=== PATIENT | female | born 1985 | race Caucasian/White ===

== ENCOUNTER 2016-12-20 10:23 | Inpatient (IN) | payer MEDICAID ==
[2016-12-20] MEDS ORDERED: LORazepam 1 MG TAB PO PRN (10:32)
[2016-12-20] MEDS ORDERED: ACETAMINOPHEN TAB 325 MG TAB PO PRN (10:32)
[2016-12-20] MEDS ORDERED: MAG HYDROX/AL HYDROX/SIMETH 30 ML CUP PO PRN (10:32)
[2016-12-20] MEDS ORDERED: MAGNESIUM HYDROXIDE 2,400 MG/10 ML CUP PO PRN (10:32)
[2016-12-20] MEDS ORDERED: ZIPRASIDONE 20 MG VIAL IM PRN (10:32)
[2016-12-20] MEDS ORDERED: LORazepam 2 MG/ML INJ IM PRN (10:33)
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
[2016-12-21] MEDS: NICOTINE 14MG/24HR PATCH TRANSDERM SCH (08:28)
[2016-12-21] MEDS ORDERED: LORazepam 1 MG TAB PO ONE (18:00)
--- NOTE | 2016-12-21 20:22 | P.HP ---
Psychiatric H&P - . H&P Date: 12/21/16 History & Physical: Allergies Allergy/AdvReac Type Severity Reaction Status Date / Time No Known Allergies Allergy Verified 12/20/16 14:33 Vital Signs Temp 98.2 F 12/21/16 06:01 Pulse 112 H 12/21/16 06:01 Resp 18 12/21/16 06:01 BP 141/79 12/21/16 06:01 Pulse Ox Intake & Output 12/20/16 12/21/16 12/21/16 18:59 06:59 18:59 Weight 76.5 kg HPI: Patient is a 31-year-old female who presents to the unit after being apped by her mother for concerns for her care of her son. Patient is floridly manic, euphoric and very pleasant during the interview. Patient states that she in no way trying to harm her son and describes in great detail recent events in which she only wanted to show her baby what to do in certain instances with her hands and never touched him in any way that would hurt him. She states that because her latter day conviction is very good sometimes she will feel awkward around her because she is always phrasing though it is even around her baby and make some people uncomfortable and she is aware, but she states that she does do She will continue to do so patient was asked to give some more examples of which was relatively benign and not bizarre. Patient is agreeable to trial of medicine, she states that she knows that she has a mental illness now and she accepts the need for treatment. She states that she only wants to get better for her children herself and she expresses and will gladly agree to treatment plan Patient simply what her counseling is not currently taking any medications. PSYCHIATRIC HISTORY: aunt has bipolar disorder PMH: Past Medical History Past Medical History: No Reported History, Asthma History of Any Multi-Drug Resistant Organisms: None Reported Additional Past Surgical History / Comment(s): tumor removed off back Past Anesthesia/Blood Transfusion Reactions: No Reported Reaction Past Psychological History: Anxiety, Depression Smoking Status: Current every day smoker FAMILY HISTORY: aunt has bipolar copd SOCIAL HISTORY: environmental: pt, son plan to move [facility], currently living with ex : no anglican: Christanity access to firearms: no sexual orientation: str safety at home: yes STRENGTHS/WEAKNESSES: resolve, family support / coping skills INTELLECTUAL FUNCTIONING: average MENTAL STATUS EXAM: Appearance: alert, well groomed, appears stated age, steady gait Behavior: psychomotor agitation +++, no abnormal movements, fair eye contact Attitude: cooperative Speech: normal rate, rhythm, fluency, articulation; volume; and prosody; primary language: [place] Mood: euphoric Affect: congruent, reactive, expansive Thought processes: linear, organized Thought content: patient does not appear to be responding to internal stimuli; patient denies auditory and visual hallucinations, no delusions appreciated Insight: poor to fair Judgment: fair Assessment and Plan (1) Bipolar 1 disorder, manic, moderate Status: Acute Plan: Start Latuda 40-mg PO QAM WC -start Klonopin 0.5-mg PO TID PRN -SW will arrange family meeting -discharge plan will take careful chafing to involve patient and her sons wellbeing Time with Patient: Greater than 30
[2016-12-21] MEDS: clonazePAM 0.5 MG TAB PO SCH (21:07)
[2016-12-22] MEDS: NICOTINE 14MG/24HR PATCH TRANSDERM SCH (09:04)
[2016-12-22] MEDS: LURASIDONE 40 MG TAB PO SCH (09:04)
[2016-12-22] MEDS: clonazePAM 0.5 MG TAB PO SCH ×3 (09:04→20:32)
--- NOTE | 2016-12-22 16:52 | P.PN ---
Subjective Principal diagnosis: Bipolar 1, most recent episode manic Patient is again pleasant, calm, cooperative with interview. She reports feeling better today and only has one concern being too drowsy in the evening on her current dose of Klonopin and asks for a dose reduction. She states she slept well for the first time last night, better than she has in fa long time Patient reports tolerating Latuda well with no adverse or side effects thus far. She remains euphoric, and intensely cordial during the interview. During team meaning, however, nursing staff and social workers describe patient as being demanding, labile, more erratic ! -decrease Klonopin to 05-mg PO BID -continue Latuda 40-mg PO with breakfast -SW will schedule a family meeting -patient has upcoming meeting with her court assigned title attorney, disposition pending course Objective - Vital Signs Vital signs: Vital Signs Temp 98.2 F 12/22/16 07:15 Pulse 91 12/22/16 15:53 Resp 18 12/22/16 15:53 BP 120/69 12/22/16 15:53 Pulse Ox 97 12/21/16 18:27 Assessment and Plan (1) Bipolar 1 disorder, manic, moderate Status: Acute
[2016-12-22] MEDS: ALBUTEROL INHALER 60 PUFF/8 GM INHALER INHALATION PRN (21:30)
[2016-12-23 08:44] LABS: Appearance,Urine Clear (Clear); Bilirubin,Urine Negative (Negative); Glucose,Urine (UA) Negative (Negative); Ketones,Urine Negative (Negative); Leukocyte Esterase,Urine Small (Negative); Mucus,Urine Rare /hpf; Nitrite,Urine Negative (Negative); Particle Count 2574; Protein,Urine Negative (Negative); Squamous Epithelial Cell,Urine 5 /hpf (0-4); UA Billing (MACRO vs. MICRO) MICRO; Urobilinogen,Urine <2.0 mg/dL (<2.0); WBC,Urine 1 /hpf (0-5)
[2016-12-23] MEDS: clonazePAM 0.5 MG TAB PO SCH ×2 (09:20→20:49)
[2016-12-23] MEDS: NICOTINE 14MG/24HR PATCH TRANSDERM SCH (09:20)
[2016-12-23] MEDS: LURASIDONE 40 MG TAB PO SCH (09:20)
--- NOTE | 2016-12-23 10:11 | P.PN ---
Subjective Principal diagnosis: Bipolar 1, most recent episode manic Patient remains somewhat manic, euphoric praising people in the name of the Lord and energetic. During interview, patient's states that she thought she was this morning and requested a STAT test becuase she woke up in the middle of the night nauseous with stomach cramps and a mild headache. Patient states the feeliing was similar to ones she had when she was so she thought, "Maybe I'm oregnant now!." Patient is again overly cordial during interview. ~ -continue Klonopin to 05-mg PO BID -continue Latuda 40-mg PO with breakfast -SW will schedule a family meeting -patient has upcoming meeting with her court assigned real estate attorney, disposition pending course Objective - Vital Signs Vital signs: Vital Signs Temp 98.2 F 12/23/16 05:52 Pulse 93 12/23/16 05:52 Resp 18 12/23/16 05:52 BP 101/64 12/23/16 05:52 Pulse Ox 97 12/21/16 18:27 - Labs Labs: Abnormal Lab Results - Last 24 Hours (Table) 12/23/16 Range/Units 07:45 Ur Leukocyte Esterase Small H (Negative) Ur Squamous Epith Cells 5 H (0-4) /hpf Urine Mucus Rare H (None) /hpf Assessment and Plan (1) Bipolar 1 disorder, manic, moderate Status: Acute
[2016-12-23 11:02] LABS: Cholesterol 141 mg/dL (<200); HDL Cholesterol 34 mg/dL (40-60)
[2016-12-23] MEDS: ALBUTEROL INHALER 60 PUFF/8 GM INHALER INHALATION PRN ×2 (12:33→21:10)
[2016-12-24] MEDS: clonazePAM 0.5 MG TAB PO SCH ×2 (08:29→20:06)
[2016-12-24] MEDS: LURASIDONE 40 MG TAB PO SCH (08:30)
[2016-12-24] MEDS: NICOTINE 14MG/24HR PATCH TRANSDERM SCH (08:30)
[2016-12-24 09:37] LABS: Basophils # (A) 0.1 k/uL (0-0.2); Basophils % (A) 1 %; CH 30.7; CHCM 32.7; Eosinophils # (A) 0.4 k/uL (0-0.7); Eosinophils % (A) 5 %; HCT 47.3 % (34.0-46.0); HDW 2.16; HGB 14.9 gm/dL (11.4-16.0); Luc # (Auto) 0.14; Luc % (Auto) 2; Lymphocytes # (A) 2.9 k/uL (1.0-4.8); Lymphocytes % (A) 33 %; MCH 29.7 pg (25.0-35.0); MCHC 31.5 g/dL (31.0-37.0); MCV 94.2 fL (80.0-100.0); Monocytes # (A) 0.5 k/uL (0-1.0); Monocytes % (A) 6 %; Neutrophils # (A) 4.6 k/uL (1.3-7.7); Neutrophils % (A) 54 %; RBC 5.02 m/uL (3.80-5.40); RDW 13.9 % (11.5-15.5); WBC 8.6 k/uL (3.8-10.6); WBC (Perox) 8.13
[2016-12-24 10:09] LABS: ALT 35 U/L (9-52); AST 21 U/L (14-36); Alkaline Phosphatase 60 U/L (38-126); Anion Gap 13 mmol/L; Blood Urea Nitrogen 11 mg/dL (7-17); Carbon Dioxide 22 mmol/L (22-30); Chloride 105 mmol/L (98-107); Cholesterol 144 mg/dL (<200); Glucose 98 mg/dL (74-99); HDL Cholesterol 33 mg/dL (40-60); Non-African American GFR(MDRD) >60 (>60 ml/min/1.73 sqM); Potassium 4.4 mmol/L (3.5-5.1); Sodium 140 mmol/L (137-145); Total Bilirubin 0.5 mg/dL (0.2-1.3); Total Protein 7.9 g/dL (6.3-8.2)
[2016-12-24 12:56] LABS: Hemoglobin A1C 5.1 % (4.2-6.1)
--- NOTE | 2016-12-24 13:35 | P.PN ---
Subjective Principal diagnosis: Bipolar 1, most recent episode manic Vital Signs Temp 98.7 F 12/24/16 00:12 Pulse 110 H 12/24/16 00:12 Resp 16 12/24/16 00:12 BP 119/82 12/24/16 00:12 Pulse Ox 97 12/21/16 18:27 Interval History: Patient continues to be manic, euphoric, energetic, intrusive, grandiosity, hyperverbal. She has also began to display some Cluster B traits, splitting with staff and peers, acting like a child yet normal when observed when she is not aware someone is watching her. Patient is tolerating Latuda well with no adverse side effects. She does report today a desire to have children in the future and wants to make certain her regimen is safe if possible for . Objective - Vital Signs Vital signs: Vital Signs Temp 98.7 F 12/24/16 00:12 Pulse 110 H 12/24/16 00:12 Resp 16 12/24/16 00:12 BP 119/82 12/24/16 00:12 Pulse Ox 97 12/21/16 18:27 - Labs CBC & Chem 7: 12/24/16 09:18 12/24/16 09:18 Labs: Abnormal Lab Results - Last 24 Hours (Table) 12/24/16 12/24/16 Range/Units 09:18 09:18 Hct 47.3 H (34.0-46.0) % HDL Cholesterol 33 L (40-60) mg/dL Assessment and Plan (1) Bipolar 1 disorder, manic, moderate Status: Acute Plan: -Increase Latuda to 80-mg PO QAM WC -continue Klonopin 0.5-mg PO BID -SW will arrange family meeting -provisional discharge on 12/28/2016
[2016-12-25] MEDS: LURASIDONE 80 MG TAB PO SCH (08:29)
[2016-12-25] MEDS: NICOTINE 14MG/24HR PATCH TRANSDERM SCH (08:29)
[2016-12-25] MEDS: clonazePAM 0.5 MG TAB PO SCH ×2 (08:29→21:33)
--- NOTE | 2016-12-25 17:58 | P.PN ---
Subjective Principal diagnosis: Interval History: Patient remains manic, intrusive, requires constant redirection. Per staff, patient got approximately 4 hours of sleep last night having stayed up late to writing letters, which she presented this morning to several team members. The attending letter is essentially a list in prose things patient will do post discharge to ensure success. Patient;s goal is discharge today, which is not happening. Patient attempts multiple times to persuade including claiming she has appointments already setup. She does not. Patient was reminded again that her SW would arrange this. Patient then stated attending could speak to her new psychiatrist and therapist. Patient was reminded that speaking to a psychiatrist and therapist whom she has yet to see would be of no value and therefore unnecessary. Patient was informed of her family meeting on Wednesday and encouraged to participate in groups this weekend. Objective - Vital Signs Vital signs: Vital Signs Temp 97.6 F 12/25/16 04:14 Pulse 101 H 12/25/16 04:14 Resp 16 12/25/16 04:14 BP 113/69 12/25/16 04:14 Pulse Ox 97 12/21/16 18:27 - Labs CBC & Chem 7: 12/24/16 09:18 12/24/16 09:18 Assessment and Plan (1) Bipolar 1 disorder, manic, moderate Status: Acute Plan: -Increase Latuda to 80-mg PO QAM WC -continue Klonopin 0.5-mg PO BID -family meeting scheduled for 12/27/2016 -provisional discharge on 12/28/2016
[2016-12-25] MEDS: ALBUTEROL INHALER 60 PUFF/8 GM INHALER INHALATION PRN (19:14)
[2016-12-26] MEDS: NICOTINE 14MG/24HR PATCH TRANSDERM SCH (08:10)
[2016-12-26] MEDS: clonazePAM 0.5 MG TAB PO SCH ×2 (08:10→21:25)
[2016-12-26] MEDS: LURASIDONE 80 MG TAB PO SCH (08:10)
[2016-12-26] MEDS: ALBUTEROL INHALER 60 PUFF/8 GM INHALER INHALATION PRN ×2 (08:41→16:13)
--- NOTE | 2016-12-26 13:01 | P.PN ---
Progress Note - Text Interval history: Patient is seen in cross coverage today for Dr. Alexander. She reports that she just had taken a nap. She says that the Klonopin does make her tired but it does give her benefit. She feels like the Latuda is working well for her. She does not seem to voice any adverse psychotropic medication side effects other than some sedation with Klonopin. She says she slept about 6 hours last night. Mental status exam: She is alert and cooperative with the interview. She is seen with female nursing staff present. She describes her mood as "amazing.". She does show range of affect. She does not verbalize any thoughts of harm to self or others. She does not verbalize any hallucinations or delusions. She does not show any agitation. Plan: We'll maintain current psychotropic medication regimen. Monitor for any medication side effects and monitor her ongoing response. We'll continue to cover this patient for Dr. Alexander through the weekend.
[2016-12-27] MEDS: clonazePAM 0.5 MG TAB PO SCH ×2 (08:04→21:16)
[2016-12-27] MEDS: LURASIDONE 80 MG TAB PO SCH (08:04)
[2016-12-27] MEDS: NICOTINE 14MG/24HR PATCH TRANSDERM SCH (08:04)
[2016-12-27] MEDS: ALBUTEROL INHALER 60 PUFF/8 GM INHALER INHALATION PRN ×3 (08:50→21:27)
--- NOTE | 2016-12-27 15:12 | P.PN ---
Progress Note - Text Interval history: Patient is seen in cross coverage today in for Dr. Alexander. She reports that she was just taking a nap. She does feel like the Klonopin makes her tired but feels that it is beneficial for her. She also feels like the Latuda is helping her. She describes her mood is doing good. She does seem to describe that her mood still could be more stabilized. She is seen with female nursing staff present. Per staff she has continued to present with some manic-like symptoms. Mental status exam: She is alert and cooperative with the interview. Her speech is fluent, not really rapid or pressured today. Her mood is described as good. She denies any thoughts of harm to self or others. She does not verbalize any hallucinations. She does not make any emmie delusional statements. She does not show any agitation. Plan: We'll initiate Lamictal 25 mines at bedtime to assist with mood stabilization. We'll maintain Latuda as current as well as Klonopin. Dr. Alexander will resume care this patient starting tomorrow. Monitor for any medication side effects.
[2016-12-27] MEDS: lamoTRIgine 25 MG TAB PO SCH (21:16)
[2016-12-28] MEDS: clonazePAM 0.5 MG TAB PO SCH (08:08)
[2016-12-28] MEDS: NICOTINE 14MG/24HR PATCH TRANSDERM SCH (08:08)
[2016-12-28] MEDS: LURASIDONE 80 MG TAB PO SCH (08:08)
[2016-12-28] MEDS: ALBUTEROL INHALER 60 PUFF/8 GM INHALER INHALATION PRN ×3 (09:09→18:50)
[2016-12-28] MEDS ORDERED: METOPROLOL SUCCINATE (ER) 50 MG TAB.ER.24H PO STA (17:33)
[2016-12-28] MEDS ORDERED: traZODone HCL 50 MG TAB PO SCH ×2 (21:00→22:30)
[2016-12-28] MEDS ORDERED: clonazePAM 0.5 MG TAB PO SCH (21:00)
[2016-12-28] MEDS: lamoTRIgine 25 MG TAB PO SCH (21:06)
--- NOTE | 2016-12-28 22:32 | P.PN ---
Subjective Patient interviewed privately. Patient began interview displaying a list she made displaying her to do list upon returning home to help herself on track. She them attempted to present to various other lists. Patient attendance or rather lack thereof to group therapy over the last 3 days was reviewed with patient in detail as well as the family meeting where patient presented as hyper, impulsive, and such that her parents did not feel patient was safe to discharge home. Patient admitted to her mistakes and admits she has been careless. Patient also endorses symptom suggestive of akathisia today which could explain some of her recent behaviors Objective - Vital Signs Vital signs: Vital Signs Temp 98.5 F 12/28/16 07:07 Pulse 100 12/27/16 01:24 Resp 16 12/28/16 07:07 BP 120/65 12/28/16 07:07 Pulse Ox 97 12/21/16 18:27 Intake & Output 12/27/16 12/28/16 12/28/16 18:59 06:59 18:59 Weight 78.4 kg - Labs CBC & Chem 7: 12/24/16 09:18 12/24/16 09:18 Assessment and Plan (1) Bipolar 1 disorder, manic, moderate Status: Acute Plan: -continue Latuda to 80-mg PO QAM WC -decrease Klonopin 0.5-mg PO HS due to EDS -start Toprol XL 50--mg PO QAM
[2016-12-29] MEDS ORDERED: METOPROLOL SUCCINATE (ER) 50 MG TAB.ER.24H PO SCH (09:00)
[2016-12-29] MEDS: LURASIDONE 80 MG TAB PO SCH (09:02)
[2016-12-29] MEDS: NICOTINE 14MG/24HR PATCH TRANSDERM SCH (09:02)
[2016-12-29] MEDS: ALBUTEROL INHALER 60 PUFF/8 GM INHALER INHALATION PRN ×2 (09:09→13:46)
--- NOTE | 2016-12-29 20:06 | PN ---
PROGRESS NOTE DATE OF SERVICE: 12/29/2016 PRESENTING COMPLAINT: Area of redness in the leg. INTERVAL HISTORY: This patient is admitted to the psychiatry unit. Tolerating a diet. Noticed what looked an insect bite on the inside of the upper leg, just above the knee joint posteriorly. She does not remember if an insect bit her there. She does not remember any injury. Rather localized. PHYSICAL EXAMINATION: Temperature 98.5, pulse 86, respirations 16, blood pressure 108/71. DERMATOLOGIC: On the posterior part of the leg, just above the knee, raised area very slightly tender. It matches the area of the seams of the gabby lining. ASSESSMENT: Possible local trauma from the linng of tight jeans. PLAN: The patient was told not to wear jeans and use a hospital gown instead and use some local cream like Vaseline cream. This was discussed with the nurse. MMMAGDIELL / MARINAN: [id number] /
[2016-12-29] MEDS ORDERED: LORazepam 1 MG TAB PO SCH (21:00)
[2016-12-29] MEDS: lamoTRIgine 25 MG TAB PO SCH (21:14)
--- NOTE | 2016-12-29 21:14 | P.PN ---
Subjective Principal diagnosis: Bipolar disorder, type I, most recent episode manic Patient interviewed privately. Akathisia is improved but still significant. Patient is however participating in more groups. She continues to have difficulty sleeping at night, but otherwise she reports feeling improved. Staff report patient is doing better overall/ Objective - Vital Signs Vital signs: Vital Signs Temp 98.5 F 12/29/16 01:36 Pulse 66 12/29/16 01:36 Resp 16 12/29/16 01:36 BP 108/71 12/29/16 01:36 Pulse Ox 97 12/21/16 18:27 - Labs CBC & Chem 7: 12/24/16 09:18 12/24/16 09:18 Assessment and Plan (1) Bipolar 1 disorder, manic, moderate Status: Acute Plan: -continue Latuda to 80-mg PO QAM WC -start Ativan 2-mg PO QHS -increase Trazodone to 100-mg PO QHS -increase Toprol XL 75--mg PO QAM Time with Patient: Greater than 30
[2016-12-29] MEDS: traZODone HCL 100 MG TAB PO SCH (22:11)
[2016-12-30] MEDS: LURASIDONE 80 MG TAB PO SCH (08:50)
[2016-12-30] MEDS: NICOTINE 14MG/24HR PATCH TRANSDERM SCH (08:50)
[2016-12-30] MEDS: METOPROLOL SUCCINATE (ER) 25 MG TAB.ER.24H PO SCH (08:53)
--- NOTE | 2016-12-30 12:09 | P.PN ---
Subjective Principal diagnosis: Bipolar disorder, type I, most recent episode manic Patient interviewed privately. She reports for the first time sleeping 8- consecutive hours. She reports total resolution of akathisia with increase of Toprol XL to 75-mg PO QAM. Patient is eating well. Patient remains mildly hypomanic but overall much improved from initial presentation. She is now able to sit down and through entire group sessions without getting up and pacing. Staff report patient has been intrusive with other patient's and also note a maked decrease in manic symptoms. Patient request a full review of her medications and clarification on her primary diagnosis, which is bipolar I disorder, most recent episode moderate. Appearance: alert, well groomed, appears stated age, steady gait Behavior: no psychomotor agitation or psychomotor retardation, no abnormal movements, fair eye contact Attitude: cooperative Speech: normal rate, rhythm, fluency, articulation; volume; and prosody; primary language: Telugu Mood: mildly hypomanic Affect: congruent, reactive, bright Thought processes: linear, organized Thought content: patient does not appear to be responding to internal stimuli; patient denies auditory and visual hallucinations, no delusions appreciated Insight: fair Judgment: fair Objective - Vital Signs Vital signs: Vital Signs Temp 98.5 F 12/29/16 01:36 Pulse 104 H 12/30/16 08:55 Resp 20 12/30/16 08:55 BP 104/62 12/30/16 08:55 Pulse Ox 97 12/21/16 18:27 - Labs CBC & Chem 7: 12/24/16 09:18 12/24/16 09:18 Assessment and Plan (1) Bipolar 1 disorder, manic, moderate Status: Acute Plan: -continue Latuda to 80-mg PO QAM WC -continue Ativan 2-mg PO QHS -continue Trazodone to 100-mg PO QHS -continue Toprol XL 75--mg PO QAM -psychoeducation on bipolar I, detection and appropriate response to future mood episodes to prevent re-hospitalization, patient given handout on bipolar I disorder Time with Patient: Greater than 30
[2016-12-30] MEDS ORDERED: lamoTRIgine 25 MG TAB PO SCH ×2 (21:00→22:00)
[2016-12-30] MEDS: traZODone HCL 100 MG TAB PO SCH (21:56)
[2016-12-30] MEDS ORDERED: LORazepam 1 MG TAB PO SCH (22:00)
[2016-12-31 06:42] VITALS: BP 100/69; PULSE 85; RESP 14; TEMP 97.9
[2016-12-31] MEDS: ALBUTEROL INHALER 60 PUFF/8 GM INHALER INHALATION PRN (08:46)
[2016-12-31] MEDS: LURASIDONE 80 MG TAB PO SCH (09:02)
[2016-12-31] MEDS: NICOTINE 14MG/24HR PATCH TRANSDERM SCH (09:02)
[2016-12-31] MEDS: METOPROLOL SUCCINATE (ER) 25 MG TAB.ER.24H PO SCH ×2 (09:02→09:06)
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
== END 2016-12-31 11:13 | disposition home or self-care (01) | DRG 753 ==
LOC: UNDOADMIN 11:34 → 3MHU 11:34 → UNDOADMIN 16:44 → 3MHU 16:49
PROVIDERS: ADMIT Psychiatry & Neurology Psychiatry; ATTEND Psychiatry & Neurology Psychiatry
DX: F31.9 Bipolar disorder, unspecified (principal); E86.0 Dehydration; F17.210 Nicotine dependence, cigarettes, uncomplicated; F41.9 Anxiety disorder, unspecified; G47.00 Insomnia, unspecified; J45.20 Mild intermittent asthma, uncomplicated; Z81.8 Family history of other mental and behavioral disorders; Z79.899 Other long term (current) drug therapy
CPT/HCPCS: 80053; 80061; 81001; 81025; 83036; 84443; 85025; 93005; 94640

== ENCOUNTER → 2017-05-24 | Outpatient (CLI) | payer OTHER ==
[2017-05-24 15:29] LABS: T4, Free (Free Thyroxine) 0.82 ng/dL (0.78-2.19)
== END | disposition home or self-care (01) ==
LOC: LABWHC1 14:18
PROVIDERS: ATTEND Psychiatry & Neurology Psychiatry
DX: Z51.81 Encounter for therapeutic drug level monitoring (principal); Z79.899 Other long term (current) drug therapy
CPT/HCPCS: 36415; 84439; 84443

== ENCOUNTER → 2017-11-30 | Outpatient (CLI) | payer OTHER ==
[2017-11-30 15:30] LABS: T4, Free (Free Thyroxine) 0.96 ng/dL (0.78-2.19)
== END | disposition home or self-care (01) ==
LOC: LABWHC1 14:44
PROVIDERS: ATTEND Psychiatry & Neurology Psychiatry
DX: Z51.81 Encounter for therapeutic drug level monitoring (principal); Z79.899 Other long term (current) drug therapy
CPT/HCPCS: 36415; 83036; 84439; 84443

== ENCOUNTER → 2019-05-30 | Outpatient (CLI) | payer OTHER ==
[2019-05-30 16:55] LABS: African American GFR (CKD) 113.9 (60.0-200.0); Albumin 4.4 g/dL (3.80-4.90); Albumin/Globulin Ratio 1.76 (1.60-3.17); Anion Gap 8.2 mmol/L (4.00-12.00); BUN/Creat Ratio 17.5 Ratio (12.00-20.00); Calcium 9.5 mg/dL (8.7-10.3); Carbon Dioxide 21.8 mmol/L (21.6-31.8); Globulin 2.5 g/dL (1.6-3.3); Non-African American GFR(CKD) 98.2 (60.0-200.0); Potassium 4.2 mmol/L (3.5-5.5); Total Bilirubin 0.6 mg/dL (0.2-1.2); Total Protein 6.9 g/dL (6.2-8.2)
[2019-05-30 17:02] LABS: T4, Free (Free Thyroxine) 0.9 ng/dL (0.80-1.80)
[2019-05-30 18:46] LABS: Hemoglobin A1C 5.4 % (4.0-6.0)
== END | disposition home or self-care (01) ==
LOC: LABWHC1 11:27
PROVIDERS: ATTEND Psychiatry & Neurology Psychiatry
DX: Z51.81 Encounter for therapeutic drug level monitoring (principal); Z79.899 Other long term (current) drug therapy
CPT/HCPCS: 36415; 80053; 83036; 84439; 84443

== ENCOUNTER 2019-08-21 17:53 | Emergency (ER) | payer OTHER ==
[2019-08-21 18:30] VITALS: PULSE 94; RESP 18; TEMP 98.1
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
[2019-08-21 20:22] VITALS: BP 135/91
== END 2019-08-21 20:22 | disposition home or self-care (01) ==
LOC: EC 17:53
DX: M54.5 Low back pain (principal); F17.200 Nicotine dependence, unspecified, uncomplicated; Z88.8 Allergy status to other drugs, medicaments and biological substances
CPT/HCPCS: 99283

== ENCOUNTER → 2019-08-30 | Outpatient (CLI) | payer OTHER ==
--- NOTE | 2019-08-30 11:54 | XR ---
EXAM TYPE: LUMBAR SPINE X RAY SERIES COMPARISON: NONE HISTORY: Pain TECHNIQUE: 4 views are submitted. FINDINGS: Alignment is anatomic. The pedicles are intact. The transverse processes are intact. There is no s pondylolysis or spondylolisthesis. There is degenerative disc disease L4-5 and L5-S1. Facet arthropa thy at these levels. Sclerosis involving L4 likely discogenic. IMPRESSION: 1. Degenerative disc disease L4-5 and L5-S1 with facet arthropathy and posterior spondylolysis and sp urring. Recommend follow-up MRI. Foraminal encroachment suspected at both levels.
== END | disposition home or self-care (01) ==
LOC: RADXRMAIN 11:25
PROVIDERS: ATTEND Nurse Practitioner Family
DX: M51.36 Other intervertebral disc degeneration, lumbar region (principal); M47.816 Spondylosis without myelopathy or radiculopathy, lumbar region; M47.817 Spondylosis without myelopathy or radiculopathy, lumbosacral region; M46.96 Unspecified inflammatory spondylopathy, lumbar region; M46.97 Unspecified inflammatory spondylopathy, lumbosacral region
CPT/HCPCS: 72100

== ENCOUNTER → 2019-12-14 | Outpatient (CLI) | payer OTHER ==
[2019-12-14 16:49] LABS: Basophils # (A) 0.1 k/uL (0-0.2); Basophils % (A) 0 %; Eosinophils # (A) 0.2 k/uL (0-0.7); Eosinophils % (A) 2 %; HCT 45.7 % (34.0-46.0); HGB 14.5 gm/dL (11.4-16.0); Lymphocytes # (A) 3.2 k/uL (1.0-4.8); Lymphocytes % (A) 28 %; MCH 29.7 pg (25.0-35.0); MCHC 31.7 g/dL (31.0-37.0); MCV 93.6 fL (80.0-100.0); Mean Platelet Volume 6.6; Monocytes # (A) 0.5 k/uL (0-1.0); Monocytes % (A) 5 %; Neutrophils # (A) 7.1 k/uL (1.3-7.7); Neutrophils % (A) 64 %; Platelet Count 305 k/uL (150-450); RBC 4.88 m/uL (3.80-5.40); RDW 13.5 % (11.5-15.5); WBC 11.2 k/uL (3.8-10.6)
[2019-12-15 01:42] LABS: African American GFR (CKD) 113.1 (60.0-200.0); Albumin 4.7 g/dL (3.80-4.90); Albumin/Globulin Ratio 1.81 (1.60-3.17); Anion Gap 10.1 mmol/L (4.00-12.00); C Reactive Protein 1.7 mg/dL (0.0-0.8); Calcium 9.4 mg/dL (8.7-10.3); Carbon Dioxide 22.9 mmol/L (21.6-31.8); Globulin 2.6 g/dL (1.6-3.3); Non-African American GFR(CKD) 97.6 (60.0-200.0); Potassium 4.2 mmol/L (3.5-5.5); Total Bilirubin 0.4 mg/dL (0.3-1.2); Total Protein 7.3 g/dL (6.2-8.2)
[2019-12-15 02:49] LABS: Erythrocyte Sedimentation Rate 16 mm/Hr (0-20)
== END | disposition home or self-care (01) ==
LOC: LABWHC1 15:58
PROVIDERS: ATTEND Nurse Practitioner Acute Care
DX: E55.9 Vitamin D deficiency, unspecified (principal); M46.40 Discitis, unspecified, site unspecified
CPT/HCPCS: 36415; 80053; 82306; 82550; 85025; 85652; 86140

== ENCOUNTER → 2020-06-25 | Outpatient (CLI) | payer MEDICARE ==
[2020-06-25 23:10] LABS: Basophils # (A) 0.06 X 10*3/uL (0.00-0.10); Basophils % (A) 0.4 %; Eosinophils # (A) 0.32 X 10*3/uL (0.04-0.35); Eosinophils % (A) 2.3 %; HCT 43.5 % (37.2-46.3); HGB 13.7 g/dL (12.0-15.0); Lymphocytes # (A) 4.13 X 10*3/uL (0.90-5.00); Lymphocytes % (A) 30.2 %; MCH 30.1 pg (27.0-32.0); MCHC 31.5 g/dL (32.0-37.0); MCV 95.6 fL (80.0-97.0); Mean Platelet Volume 9.2 fL (9.5-12.2); Monocytes # (A) 0.74 X 10*3/uL (0.20-1.00); Monocytes % (A) 5.4 %; Neutrophils # (A) 8.39 X 10*3/uL (1.80-7.70); Neutrophils % (A) 61.4 %; Platelet Count 324 X 10*3/uL (140-440); RBC 4.55 X 10*6/uL (4.10-5.20); RDW 13.1 % (11.5-14.5); WBC 13.68 X 10*3/uL (4.50-10.00)
[2020-06-26 02:32] LABS: African American GFR (CKD) 113.1 (60.0-200.0); Albumin 4.7 g/dL (3.80-4.90); Albumin/Globulin Ratio 1.88 (1.60-3.17); Anion Gap 10.9 mmol/L (4.00-12.00); BUN/Creat Ratio 16.25 Ratio (12.00-20.00); Calcium 9.2 mg/dL (8.7-10.3); Carbon Dioxide 20.1 mmol/L (21.6-31.8); Globulin 2.5 g/dL (1.6-3.3); Non-African American GFR(CKD) 97.6 (60.0-200.0); Potassium 4.2 mmol/L (3.5-5.5); Total Bilirubin 0.3 mg/dL (0.3-1.2); Total Protein 7.2 g/dL (6.2-8.2)
== END | disposition home or self-care (01) ==
LOC: LABWHC1 16:20
PROVIDERS: ATTEND Nurse Practitioner Acute Care
DX: E55.9 Vitamin D deficiency, unspecified (principal); M19.90 Unspecified osteoarthritis, unspecified site
CPT/HCPCS: 36415; 80053; 82306; 85025

== ENCOUNTER → 2020-10-30 | Outpatient (CLI) | payer MEDICARE, OTHER ==
[2020-10-30 23:24] LABS: Basophils # (A) 0.05 X 10*3/uL (0.00-0.10); Basophils % (A) 0.4 %; Eosinophils # (A) 0.28 X 10*3/uL (0.04-0.35); Eosinophils % (A) 2.3 %; HCT 43.5 % (37.2-46.3); Lymphocytes # (A) 3.95 X 10*3/uL (0.90-5.00); Lymphocytes % (A) 32.7 %; MCH 29.5 pg (27.0-32.0); MCHC 32.2 g/dL (32.0-37.0); MCV 91.8 fL (80.0-97.0); Mean Platelet Volume 9.2 fL (9.5-12.2); Monocytes # (A) 0.63 X 10*3/uL (0.20-1.00); Monocytes % (A) 5.2 %; Neutrophils # (A) 7.13 X 10*3/uL (1.80-7.70); Neutrophils % (A) 59.1 %; Platelet Count 310 X 10*3/uL (140-440); RBC 4.74 X 10*6/uL (4.10-5.20); WBC 12.08 X 10*3/uL (4.50-10.00)
[2020-10-31 01:20] LABS: Hemoglobin A1C 5.5 % (4.0-6.0)
[2020-10-31 06:30] LABS: Chol/HDL Ratio 6.71; LDL Cholesterol,Calculated 170.2 mg/dL (0.0-131.0); VLDL Calculation 23.8 mg/dL (5.00-40.00)
== END | disposition home or self-care (01) ==
LOC: LABWHC1 14:28
PROVIDERS: ATTEND Psychiatry & Neurology Psychiatry
DX: Z79.899 Other long term (current) drug therapy (principal)
CPT/HCPCS: 36415; 80061; 83036; 85025

== ENCOUNTER → 2021-01-23 | Outpatient (CLI) | payer MEDICARE, OTHER ==
[2021-01-24 01:04] LABS: ALT 50 U/L (8-44); AST 23 U/L (13-35); African American GFR (CKD) 117.8 (60.0-200.0); Albumin 4.5 g/dL (3.8-4.9); Alkaline Phosphatase 102 U/L (41-126); BUN/Creat Ratio 17.56 Ratio (12.00-20.00); Bilirubin, Conjugated <0.20 mg/dL (0.20-0.40); Blood Urea Nitrogen 13.5 mg/dL (9.0-27.0); Calcium 9.6 mg/dL (8.7-10.3); Carbon Dioxide 23.9 mmol/L (21.6-31.8); Chloride 103 mmol/L (96-109); Globulin 2.8 g/dL (1.6-3.3); Glucose 90 mg/dL (70-110); Non-African American GFR(CKD) 101.6 (60.0-200.0); Potassium 4.5 mmol/L (3.5-5.5); Sodium 141 mmol/L (135-145); Total Protein 7.3 g/dL (6.2-8.2)
== END | disposition home or self-care (01) ==
LOC: LABWHC1 14:19
PROVIDERS: ATTEND Psychiatry & Neurology Psychiatry
DX: F31.13 Bipolar disorder, current episode manic without psychotic features, severe (principal); Z79.899 Other long term (current) drug therapy
CPT/HCPCS: 36415; 80048; 80076

== ENCOUNTER → 2021-02-07 | Outpatient (CLI) | payer MEDICARE, OTHER ==
[2021-02-07 16:27] LABS: Blood Urea Nitrogen 11.5 mg/dL (9.0-27.0); T4, Free (Free Thyroxine) 0.94 ng/dL (0.800-1.800)
== END | disposition home or self-care (01) ==
LOC: LABWHC1 10:20
PROVIDERS: ATTEND Dermatology
DX: L30.9 Dermatitis, unspecified (principal)
CPT/HCPCS: 36415; 84439; 84443; 84520

== ENCOUNTER → 2021-02-24 | Outpatient (CLI) | payer MEDICARE, OTHER ==
[2021-02-24 23:26] LABS: Basophils # (A) 0.05 X 10*3/uL (0.00-0.10); Basophils % (A) 0.3 %; Eosinophils # (A) 0.34 X 10*3/uL (0.04-0.35); Eosinophils % (A) 2.2 %; HCT 44.9 % (37.2-46.3); Lymphocytes # (A) 3.86 X 10*3/uL (0.90-5.00); Lymphocytes % (A) 24.8 %; MCH 28.9 pg (27.0-32.0); MCHC 31.2 g/dL (32.0-37.0); MCV 92.8 fL (80.0-97.0); Monocytes # (A) 0.66 X 10*3/uL (0.20-1.00); Monocytes % (A) 4.2 %; Neutrophils # (A) 10.62 X 10*3/uL (1.80-7.70); Neutrophils % (A) 68.1 %; Platelet Count 334 X 10*3/uL (140-440); RBC 4.84 X 10*6/uL (4.10-5.20); RDW 13.9 % (11.5-14.5); WBC 15.59 X 10*3/uL (4.50-10.00)
[2021-02-25 02:28] LABS: Luteinizing Hormone 6.3 mIU/mL; Testosterone 40.2 ng/mL (9.01-47.94)
== END | disposition home or self-care (01) ==
LOC: LABWHC1 15:50
PROVIDERS: ATTEND Midwife
DX: N92.6 Irregular menstruation, unspecified (principal)
CPT/HCPCS: 36415; 83001; 83002; 84144; 84403; 84443; 85025

== ENCOUNTER 2021-11-06 11:40 | Emergency (ER) | payer MEDICARE, OTHER ==
[2021-11-06 11:49] VITALS: TEMP 98
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
[2021-11-06 13:21] LABS: Amphetamine Screen,Urine Not Detected (NotDetected); Barbiturate Screen,Urine Not Detected (NotDetected); Benzodiazepines Screen,Urine Not Detected (NotDetected); Cocaine Screen,Urine Not Detected (NotDetected); Methadone Screen, Urine Not Detected (NotDetected); Opiate Screen,Urine Not Detected (NotDetected); Oxycodone Screen, Urine Not Detected (NotDetected); Phencyclidine Screen,Urine Not Detected (NotDetected); Tricyclic Antidepressant,Urine Not Detected (NotDetected); Urn Cannabinoid Scrn Not Detected (NotDetected)
[2021-11-06 13:45] LABS: Appearance,Urine Clear (Clear); Bilirubin,Urine Negative (Negative); Blood,Urine Large (Negative); Color,Urine Yellow; Glucose,Urine (UA) Negative (Negative); Ketones,Urine 1+ (Negative); Leukocyte Esterase,Urine Trace (Negative); Mucus,Urine Rare /hpf; Nitrite,Urine Negative (Negative); Protein,Urine 2+ (Negative); RBC,Urine >182 /hpf (0-5); Specific Gravity,Urine 1.023 (1.001-1.035); Squamous Epithelial Cell,Urine 2 /hpf (0-4); WBC,Urine 4 /hpf (0-5)
[2021-11-06 14:41] LABS: Basophils # (A) 0.1 k/uL (0-0.2); Basophils % (A) 0 %; Eosinophils # (A) 0.2 k/uL (0-0.7); Eosinophils % (A) 2 %; HCT 41.9 % (34.0-46.0); HGB 13.5 gm/dL (11.4-16.0); Lymphocytes # (A) 3.2 k/uL (1.0-4.8); Lymphocytes % (A) 21 %; MCHC 32.2 g/dL (31.0-37.0); Mean Platelet Volume 6.9; Monocytes # (A) 0.6 k/uL (0-1.0); Monocytes % (A) 4 %; Neutrophils # (A) 11.2 k/uL (1.3-7.7); Neutrophils % (A) 73 %; Platelet Count 337 k/uL (150-450); RBC 4.51 m/uL (3.80-5.40); RDW 14.2 % (11.5-15.5); WBC 15.5 k/uL (3.8-10.6)
[2021-11-06 14:50] LABS: ALT 39 U/L (4-34); AST 32 U/L (14-36); African American GFR (CKD) >90 (>60 ml/min/1.73 sqM); Albumin 4.5 g/dL (3.5-5.0); Alkaline Phosphatase 101 U/L (38-126); Anion Gap 13 mmol/L; Blood Urea Nitrogen 14 mg/dL (7-17); Calcium 9.4 mg/dL (8.4-10.2); Carbon Dioxide 20 mmol/L (22-30); Chloride 106 mmol/L (98-107); Glucose 103 mg/dL (74-99); Non-African American GFR(CKD) >90 (>60 ml/min/1.73 sqM); Potassium 4.2 mmol/L (3.5-5.1); Sodium 139 mmol/L (137-145); Total Bilirubin 0.4 mg/dL (0.2-1.3); Total Protein 7.6 g/dL (6.3-8.2)
[2021-11-06 18:05] VITALS: BP 136/91; PULSE 100; RESP 18
[2021-11-06] MEDS ORDERED: OLANZapine 5 MG TAB PO SCH (21:00)
== END 2021-11-06 23:25 ==
LOC: EC 11:40
DX: F29 Unspecified psychosis not due to a substance or known physiological condition (principal); J45.909 Unspecified asthma, uncomplicated; F17.200 Nicotine dependence, unspecified, uncomplicated; Z20.822 Contact with and (suspected) exposure to COVID-19; Z79.51 Long term (current) use of inhaled steroids; Z88.8 Allergy status to other drugs, medicaments and biological substances
CPT/HCPCS: 36415; 80053; 80306; 81001; 81025; 82075; 85025; 87635; 99285